=== PATIENT | female | born 1955 | race Caucasian/White ===

== ENCOUNTER 2016-12-15 20:30 | Observation (INO) | payer MEDICARE, OTHER ==
[~2016-12-15] VITALS: Ht 154.9 cm; Wt 78.4 kg
[~2016-12-15 20:30] MED LIST: AMBI10TA PO; ATOR20TA42 PO; CYCL5TAB PO; FLEX10TA PO; PROZ20CA11 PO
[2016-12-15 20:39] VITALS: BP 149/97; PULSE 103; RESP 24; TEMP 97.8; O2SAT 91
[2016-12-15 20:45] VITALS: BP 156/79; PULSE 93; RESP 24; TEMP 97.7; O2SAT 89
[2016-12-15 20:58] VITALS: BP 156/79; PULSE 92; RESP 24; TEMP 97.6; O2SAT 95
[2016-12-15] MEDS ORDERED: SODIUM CHLORIDE 0.9% FLUSH 5 ML FLUSH IVF PRN (21:00)
[2016-12-15] MEDS ORDERED: methylPREDNISolone SOD SUCC 125 MG/2 ML VIAL IVP ONE (21:00)
--- NOTE | 2016-12-15 21:02 | PD ---
HPI Chief Complaint: Respiratory Distress Time Seen by Provider: 20:52 Travel History International Travel<30 days: No Contact w/Intl Traveler<30days: No Traveled to known affect area: No History of Present Illness HPI The patient is a 61-year-old female with a history of asthma who began getting short of breath last 2 days. She does not have a nebulizer machine at home and does not of oxygen at home. She does not take prednisone. She does not have an albuterol puffer. She has a Symbacort inhaler which she uses twice daily. She denies any fever. She does not smoke. PFSH Past Medical History Asthma: Yes Anxiety: Yes Depression: Yes High Cholesterol: Yes Diminished Hearing: No Hypertension: Yes Musculoskeletal: Yes (Chronic back pain, sciatica ) Respiratory: Yes (ASTHMA) Integumentary: Yes (hx eczema, not active ) Menopausal: Yes Past Surgical History Section: Yes Tonsillectomy: Yes Social History Alcohol Use: Yes (2 beers day) Tobacco Use: No Allergies-Medications (Allergen,Severity, Reaction): Coded Allergies: No Known Allergies (Verified , 12/15/16) Reported Meds & Prescriptions Reported Meds & Active Scripts Active Reported Ambien (Zolpidem Tartrate) 10 Mg Tab 10 Mg PO HS PRN Prozac (Fluoxetine HCl) 20 Mg Cap 20 Mg PO DAILY Lipitor (Atorvastatin Calcium) 20 Mg Tab 20 Mg PO HS Symbicort Inh (Budesonide/Formoterol Fumarate) 80-4.5 Mcg/Act Aero 2 Puff INH Q12HR Review of Systems Except as stated in HPI: all other systems reviewed are Neg Physical Exam Narrative GENERAL: The patient is alert, oriented 3 and slight respiratory distress. Her vital signs show oximetry 89-91% on room air, blood pressure 149/97 with a pulse rate of 103 and temperature 97.8. SKIN: Warm and dry. HEAD: Atraumatic. Normocephalic. EYES: Pupils equal and round. No scleral icterus. No injection or drainage. ENT: No nasal bleeding or discharge. Mucous membranes pink and moist. NECK: Trachea midline. No JVD. CARDIOVASCULAR: Regular rate and rhythm. No murmur appreciated. RESPIRATORY: No accessory muscle use. Diminished breath sounds are heard bilaterally with a few diminished wheezes.. Breath sounds equal bilaterally. GASTROINTESTINAL: Abdomen soft, non-tender, nondistended. Hepatic and splenic margins not palpable. MUSCULOSKELETAL: No obvious deformities. No clubbing. No cyanosis. No edema. NEUROLOGICAL: Awake and alert. No obvious cranial nerve deficits. Motor grossly within normal limits. Normal speech. PSYCHIATRIC: Appropriate mood and affect; insight and judgment normal. Data Data Last Documented VS Vital Signs Date Time Temp Pulse Resp B/P Pulse Ox O2 Delivery O2 Flow Rate FiO2 12/15/16 21:35 Nasal Cannula 3.00 12/15/16 21:04 95 26 92 12/15/16 20:58 97.6 156/79 Orders Arterial Blood Gas (Abg) (12/15/16 20:52) Basic Metabolic Panel (Bmp) (12/15/16 20:52) Complete Blood Count With Diff (12/15/16 20:52) Chest, Pa & Lat (12/15/16 20:52) Ecg Monitoring (12/15/16 20:52) Iv Access Insert/Monitor (12/15/16 20:52) Oximetry (12/15/16 20:52) Oxygen Administration (12/15/16 20:52) Methylprednisolone So Succ Inj (Solumedr (12/15/16 21:00) Albuterol-Ipratropium Neb (Duoneb Neb) (12/15/16 21:00) Sodium Chloride 0.9% Flush (Ns Flush) (12/15/16 21:00) Place In Observation (12/15/16 ) Vital Signs (Adult) Q4H (12/15/16 22:54) Activity Oob Ad Sandy (12/15/16 22:54) Cardiovascular Operating Room Nurse / Telemetry .CONTINUOUS (12/15/16 22:54) Diet Heart Healthy (12/16/16 Breakfast) Sodium Chloride 0.9% Flush (Ns Flush) (12/15/16 23:00) Sodium Chloride 0.9% Flush (Ns Flush) (12/16/16 09:00) Resp Oxygen Braeden C Titrat 1-4 L (12/15/16 ) Naloxone Inj (Narcan Inj) (12/15/16 23:00) Albuterol-Ipratropium Neb (Duoneb Neb) (12/16/16 04:00) Albuterol-Ipratropium Neb (Duoneb Neb) (12/15/16 23:00) Methylprednisolone So Succ Inj (Solumedr (12/16/16 00:00) Pantoprazole (Protonix) (12/16/16 09:00) Labs Laboratory Tests Test 12/15/16 21:20 Blood Gas Puncture Site RT RADIAL Blood Gas Patient Temperature 98.6 Blood Gas HCO3 28 mmol/L Blood Gas Base Excess 3.6 mmol/L Blood Gas Oxygen Saturation 86 % Arterial Blood pH 7.43 Arterial Blood Partial 42 mmHG Pressure CO2 Arterial Blood Partial 57 mmHG Pressure O2 Arterial Blood Oxygen Content 18.5 Vol % Arterial Blood 1.8 % Carboxyhemoglobin Arterial Blood Methemoglobin 0.9 % Blood Gas Hemoglobin 15.3 G/DL Blood Gas Inspired Oxygen 21 % MDM Medical Decision Making Medical Screen Exam Complete: Yes Emergency Medical Condition: Yes Medical Record Reviewed: Yes Interpretation(s) The blood gases on room air show pH 7.43, CO2 42, PO2 57 with O2 sat 86%. Carboxyhemoglobin level is 1.8. The chest x-ray shows no acute findings. Remote granulomatous disease is noted. Differential Diagnosis Acute asthma, hypoxemia, bronchitis, pneumonia, COPD with acute exacerbation, pulmonary embolushighly unlikely Narrative Course The patient has acute asthma with hypoxemia. She does not have a nebulizer machine at home and has only the budesonide/formoterol inhaler. She does not smoke. At this time I cannot see anything on her chest x-ray that could account for the hypoxemia. Pulmonary embolus is unlikely, the patient's oxygenation goes up abruptly with nasal cannula oxygen. She also does not have chest pain or tachycardia. Plan: The patient will be admitted to Dr. gAarwal for 23 hour observation. Physician Communication Physician Communication I discussed the patient with Dr. Agarwal, the patient will be 23 hour observation to her. Diagnosis Primary Impression: Acute asthma Additional Impression: Hypoxemia Disposition: 01 DISCHARGE HOME Condition: Stable Peyman Schilling MD Dec 15, 2016 21:02
[2016-12-15] MEDS ORDERED: PROZ20CA11 PO (21:07)
[2016-12-15] MEDS ORDERED: AMBI10TA PO (21:07)
[2016-12-15] MEDS ORDERED: LIPI20TA PO (21:07)
[2016-12-15] MEDS ORDERED: SYMB80AE INH (21:07)
[2016-12-15] MEDS: RESP: ALBUTEROL 2.5 MG/IPRATROPIUM 0.5 MG NEB (SCH) INH ×2 (21:14→21:15)
[2016-12-15 21:31] LABS: BLOOD GAS BASE EXCESS 3.6 mmol/L (-2-2); BLOOD GAS CARBOXYHEMOGLOBIN 1.8 % (0-4); BLOOD GAS HCO3 28 mmol/L (22-26); BLOOD GAS METHEMOGLOBIN 0.9 % (0-2); BLOOD GAS O2 HGB SATURATION 86 % (90-100); BLOOD GAS OXYGEN CONTENT 18.5 Vol % (12.0-20.0); BLOOD GAS PCO2 42 mmHG (38-42); BLOOD GAS PO2 57 mmHG (61-120); BLOOD GAS TOTAL HGB 15.3 G/DL (12.0-16.0); CRITICAL VALUE YES; DRAW SITE RT RADIAL; FIO2 21 %; NUMBER OF ARTERIAL PUNCTURES 1; STAT YES; TEMP CORR TO 98.6; ULNAR PULSE Y
--- NOTE | 2016-12-15 22:52 | RADHPO ---
EXAM DATE/TIME: 12/15/2016 22:06 [facility] COMPARISON: No previous studies available for comparison. INDICATIONS : Short of breath MEDICAL HISTORY : None. SURGICAL HISTORY : None. ENCOUNTER: Initial ACUITY: 1 day PAIN SCORE: 0/10 LOCATION: Bilateral chest FINDINGS: PA and lateral views of the chest demonstrate the lungs to be symmetrically aerated without evidence of mass, infiltrate or effusion. The cardiomediastinal contours are unremarkable. Osseous structure s are intact. CONCLUSION: 1. No acute findings. Remote granulomatous disease. Gareth Pierson MD on December 15, 2016 at 22:49 Board Certified Radiologist. This report was verified electronically.
[2016-12-15] MEDS ORDERED: RESP: ALBUTEROL 2.5 MG/IPRATROPIUM 0.5 MG NEB (PRN) NEB (23:00)
[2016-12-15] MEDS ORDERED: SODIUM CHLORIDE 0.9% FLUSH 5 ML FLUSH FLUSH PRN (23:00)
[2016-12-15] MEDS ORDERED: NALOXONE HCL 0.4 MG/ML AMP IV PRN (23:00)
[2016-12-15 23:11] VITALS: BP 145/69; PULSE 112; RESP 18; O2SAT 92
[2016-12-16] VITALS (10 sets, daily range): BP systolic 119–145; BP diastolic 66–92; PULSE 89–104; RESP 15–20; TEMP 95.9–99; O2SAT 93–97
[2016-12-16] MEDS: methylPREDNISolone SOD SUCC 40 MG/1 ML VIAL IV PUSH SCH ×5 (00:09→22:59)
[2016-12-16] MEDS ORDERED: ZOLPIDEM TARTRATE 5 MG TAB PO ONE (01:00)
[2016-12-16 03:19] LABS: AUTOMATED NEUTROPHIL # 10.9 TH/MM3 (1.8-7.7); BASOPHIL % 0.4 % (0.0-2.0); EOSINOPHIL % 0.2 % (0.0-4.0); HEMATOCRIT 46.8 % (35.0-46.0); HEMO FLAGS DIFF FINAL; LYMPH % 2.8 % (9.0-44.0); LYMPHOCYTE # 0.3 TH/MM3 (1.0-4.8); MEAN CORPUSCULAR HEMOGLOBIN 27.7 PG (27.0-34.0); MEAN CORPUSCULAR HGB CONC 32.6 % (32.0-36.0); MONO % 0.8 % (0.0-8.0); NEUT % 95.8 % (16.0-70.0); PLATELET COUNT 346 TH/MM3 (150-450); RED CELL DISTRIBUTION WIDTH 15.1 % (11.6-17.2); WHITE BLOOD COUNT 11.3 TH/MM3 (4.0-11.0)
[2016-12-16 03:33] LABS: POTASSIUM 3.5 MEQ/L (3.5-5.1)
[2016-12-16 03:36] LABS: BICARBONATE 28.6 MEQ/L (21.0-32.0)
[2016-12-16] MEDS ORDERED: RESP: ALBUTEROL 2.5 MG/IPRATROPIUM 0.5 MG NEB (SCH) NEB (04:00)
[2016-12-16] MEDS: RESP: ALBUTEROL 2.5 MG/IPRATROPIUM 0.5 MG NEB (SCH) NEB ×3 (08:00→20:02)
[2016-12-16] MEDS: SODIUM CHLORIDE 0.9% FLUSH 5 ML FLUSH FLUSH SCH ×2 (09:03→21:00)
[2016-12-16] MEDS: PANTOPRAZOLE SOD 40 MG DELAYED RELEASE TAB PO SCH (09:03)
--- NOTE | 2016-12-16 15:43 | HHI.HP ---
cc: Amarilis Nash MD [facility] Primary [facility] Physician Amarilis Nash MD Admission Diagnosis acute asthma with hypoxemia Diagnoses: Chief Complaint: Short of breath Travel History International Travel<30 Days: No Contact w/Intl Traveler <30 Da: No Traveled to Known Affected Are: No History of Present Illness Patient is a 61-year-old female with a long-standing controlled asthma history. Patient did have increased dyspnea on exertion with associated dry cough for about 2 days. She did come to the emergency room was hypoxemic on room air at 89%. Patient was recommended for observation in the hospital due to increasing dyspnea, work of breathing and hypoxemia. She has done better with bronchodilators and steroids. Patient has an inhaler at home which she used as well as some Coricidin and nasal sprays which were not effective. Review of Systems Constitutional: DENIES: Diaphoretic episodes, Fatigue, Fever, Weight gain, Weight loss, Chills, Dizziness, Change in appetite, Night Sweats Endocrine: DENIES: Abnorml menstrual pattern, Heat/cold intolerance, Polydipsia , Polyuria, Polyphagia Eyes: DENIES: Blurred vision, Diplopia, Eye inflammation, Eye pain, Vision loss , Photosensitivity, Double Vision Ears, nose, mouth, throat: DENIES: Tinnitus, Hearing loss, Vertigo, Nasal discharge, Oral lesions, Throat pain, Hoarseness, Ear Pain, Running Nose, Epistaxis, Sinus Pain, Toothache, Odynophagia Respiratory: COMPLAINS OF: Cough, Shortness of breath, DENIES: Apneas, Snoring , Wheezing, Hemoptysis, Sputum production Cardiovascular: DENIES: Chest pain, Palpitations, Syncope, Dyspnea on Exertion , PND, Lower Extremity Edema, Orthopnea, Claudication Gastrointestinal: DENIES: Abdominal pain, Black stools, Bloody stools, Constipation, Diarrhea, Nausea, Vomiting, Difficulty Swallowing, Anorexia Genitourinary: DENIES: Abnormal vaginal bleeding, Dysmenorrhea, Dyspareunia, Sexual dysfunction, Urinary frequency, Urinary incontinence, Urgency, Hematuria , Dysuria, Nocturia, Vaginal discharge Musculoskeletal: DENIES: Joint pain, Muscle aches, Stiffness, Joint Swelling, Back pain, Neck pain Integumentary: DENIES: Abnormal pigmentation, Pruritus, Rash, Nail changes, Breast masses, Breast skin changes, Nipple discharge Hematologic/lymphatic: DENIES: Bruising, Lymphadenopathy Immunologic/allergic: DENIES: Eczema, Urticaria Neurologic: DENIES: Abnormal gait, Headache, Localized weakness, Paresthesias, Seizures, Speech Problems, Tremor, Poor Balance Psychiatric: DENIES: Anxiety, Confusion, Mood changes, Depression, Hallucinations, Agitation, Suicidal Ideation, Homicidal Ideation, Delusions Past Family Social History Past Medical History Asthma, controlled 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 Past Surgical History Urinary stent replacement monthly Reported Medications Reviewed in the medical record Allergies: Coded Allergies: No Known Allergies (Verified , 12/15/16) Active Ordered Medications Reviewed in the medical record Family History No family history of asthma Social History No tobacco or alcohol dependency, unemployed, lives with her , no sick contacts Physical Exam Vital Signs Vital Signs Date Time Temp Pulse Resp B/P Pulse Ox O2 Delivery O2 Flow Rate FiO2 12/16/16 12:26 97.7 94 15 129/85 95 12/16/16 08:10 99.0 104 16 119/82 94 12/16/16 08:02 93 Nasal Cannula 2.00 12/16/16 07:00 Nasal Cannula 2.00 12/16/16 04:19 103 12/16/16 04:04 22 95 12/16/16 04:00 95.9 103 18 145/81 96 12/16/16 04:00 Nasal Cannula 2.00 12/16/16 02:53 93 20 97 Nasal Cannula 2 12/16/16 02:53 93 20 137/66 97 Nasal Cannula 2 12/16/16 01:48 18 96 Nasal Cannula 2 12/16/16 01:48 92 18 140/88 96 Nasal Cannula 2 12/15/16 23:11 18 92 Nasal Cannula 2 12/15/16 23:11 112 18 145/69 92 Room Air 2 12/15/16 23:11 92 2 12/15/16 21:35 Nasal Cannula 3.00 12/15/16 21:04 95 26 92 Nasal Cannula 2 12/15/16 20:58 97.6 92 24 156/79 95 Nasal Cannula 2 12/15/16 20:45 97.7 93 24 156/79 89 12/15/16 20:39 97.8 103 24 149/97 91 Room Air Physical Exam GENERAL: This is a well-nourished, well-developed patient, in no apparent distress. SKIN: No rashes, ecchymoses or lesions. Cool and dry. HEAD: Atraumatic. Normocephalic. No temporal or scalp tenderness. EYES: Pupils equal round and reactive. Extraocular motions intact. No scleral icterus. No injection or drainage. ENT: Nose without bleeding, purulent drainage or septal hematoma. Throat without erythema, tonsillar hypertrophy or exudate. Uvula midline. Airway patent. NECK: Trachea midline. No JVD or lymphadenopathy. Supple, nontender, no meningeal signs. CARDIOVASCULAR: Regular rate and rhythm without murmurs, gallops, or rubs. RESPIRATORY: Decreased air flow bilaterally GASTROINTESTINAL: Abdomen soft, non-tender, nondistended. No hepato-splenomegaly , or palpable masses. No guarding. MUSCULOSKELETAL: Extremities without clubbing, cyanosis, or edema. No joint tenderness, effusion, or edema noted. No calf tenderness. Negative Homans sign bilaterally. NEUROLOGICAL: Awake and alert. Cranial nerves II through XII intact. Motor and sensory grossly within normal limits. Five out of 5 muscle strength in all muscle groups. Normal speech. Laboratory Laboratory Tests Test 12/15/16 12/16/16 21:20 03:13 Blood Gas Puncture Site RT RADIAL Blood Gas Patient Temperature 98.6 Blood Gas HCO3 28 Blood Gas Base Excess 3.6 Blood Gas Oxygen Saturation 86 Arterial Blood pH 7.43 Arterial Blood Partial 42 Pressure CO2 Arterial Blood Partial 57 Pressure O2 Arterial Blood Oxygen Content 18.5 Arterial Blood 1.8 Carboxyhemoglobin Arterial Blood Methemoglobin 0.9 Blood Gas Hemoglobin 15.3 Blood Gas Inspired Oxygen 21 White Blood Count 11.3 Red Blood Count 5.50 Hemoglobin 15.2 Hematocrit 46.8 Mean Corpuscular Volume 85.0 Mean Corpuscular Hemoglobin 27.7 Mean Corpuscular Hemoglobin 32.6 Concent Red Cell Distribution Width 15.1 Platelet Count 346 Mean Platelet Volume 7.4 Neutrophils (%) (Auto) 95.8 Lymphocytes (%) (Auto) 2.8 Monocytes (%) (Auto) 0.8 Eosinophils (%) (Auto) 0.2 Basophils (%) (Auto) 0.4 Neutrophils # (Auto) 10.9 Lymphocytes # (Auto) 0.3 Monocytes # (Auto) 0.1 Eosinophils # (Auto) 0.0 Basophils # (Auto) 0.0 CBC Comment DIFF FINAL Differential Comment Sodium Level 136 Potassium Level 3.5 Chloride Level 98 Carbon Dioxide Level 28.6 Anion Gap 9 Blood Urea Nitrogen 7 Creatinine 0.90 Estimat Glomerular Filtration 64 Rate Random Glucose 195 Calcium Level 9.1 Result Diagram: 12/16/1631212/16/16312 Imaging Last Impressions Chest X-Ray 12/15/162051 Signed Impressions: Service Date/Time: Thursday, December 15, 2016 22:06 - CONCLUSION: 1. No acute findings. Remote granulomatous disease. Gareth Pierson MD Assessment and Plan Problem List: (1) Acute asthma ICD Code: J45.909 Status: Acute Plan: Patient will continue with bronchodilators and steroids, continue with oxygen as needed and follow Christine Murray MD Dec 16, 2016 15:43
[2016-12-16] MEDS ORDERED: ZOLPIDEM TARTRATE 5 MG TAB PO PRN (22:15)
[2016-12-17] MEDS: methylPREDNISolone SOD SUCC 40 MG/1 ML VIAL IV PUSH SCH (06:06)
[2016-12-17 07:47] VITALS: O2SAT 95
[2016-12-17] MEDS: RESP: ALBUTEROL 2.5 MG/IPRATROPIUM 0.5 MG NEB (SCH) NEB ×2 (07:47→13:49)
[2016-12-17 08:52] VITALS: BP 138/88; PULSE 96; RESP 15; TEMP 97.8; O2SAT 95
[2016-12-17] MEDS: PANTOPRAZOLE SOD 40 MG DELAYED RELEASE TAB PO SCH (09:29)
[2016-12-17] MEDS: SODIUM CHLORIDE 0.9% FLUSH 5 ML FLUSH FLUSH SCH (09:30)
[2016-12-17] MEDS ORDERED: PNEUMOCOCCAL POLYVALENT INJ 25 MCG/0.5 ML SYR IM ONE (10:00)
[2016-12-17 12:11] VITALS: BP 138/78; PULSE 94; RESP 16; TEMP 96.1; O2SAT 94
[2016-12-17] MEDS ORDERED: ALBU0.08 NEB (13:30)
[2016-12-17] MEDS ORDERED: VENTAER INH (13:31)
[2016-12-17] MEDS ORDERED: NEBULIZER1 MI1 (13:31)
[2016-12-17] MEDS ORDERED: MEDR4PAK PO (13:31)
--- NOTE | 2016-12-17 13:35 | HHI.PR ---
Subjective Remarks Patient no longer feels short of breath. She states that she is still having mucus in her throat. Objective Vitals Vital Signs Date Time Temp Pulse Resp B/P Pulse Ox O2 Delivery O2 Flow Rate FiO2 12/17/16 12:11 96.1 94 16 138/78 94 12/17/16 11:45 Room Air 2.00 21 12/17/16 08:52 97.8 96 15 138/88 95 12/17/16 07:47 95 21 12/16/16 20:05 93 21 12/16/16 20:00 98.1 89 20 140/92 93 12/16/16 20:00 93 Room Air 12/16/16 17:37 98.1 95 15 122/86 94 I/O 12/16/16 12/16/16 12/16/16 12/17/16 12/17/16 12/17/16 07:00 15:00 23:00 07:00 15:00 23:00 Intake Total 0 ml 1280 ml 60 ml Balance 0 ml 1280 ml 60 ml Intake Oral 0 ml 1280 ml 60 ml # Voids 4 1 # Bowel Movements 0 0 0 Result Diagram: 12/16/1631212/16/163 Objective Remarks GENERAL: Well-nourished, well-developed patient. SKIN: Warm and dry. HEAD: Normocephalic. EYES: No scleral icterus. No injection or drainage. NECK: Supple, trachea midline. No JVD or lymphadenopathy. CARDIOVASCULAR: Regular rate and rhythm without murmurs, gallops, or rubs. RESPIRATORY: Breath sounds equal bilaterally. No accessory muscle use. On room air. GASTROINTESTINAL: Abdomen soft, non-tender, nondistended. EXTREMITIES: No cyanosis, or edema. NEUROLOGICAL: Awake, alert, and oriented x 3. Non-focal. A/P Problem List: (1) Acute asthma ICD Code: J45.909 Status: Acute Assessment and Plan -Asthma exacerbation. She had very mild hypoxia yesterday. His been stable on room air overnight. No wheezing on exam today. Patient would like to go home. We will check a walk test and if that is okay we will let her go with a Medrol Dosepak, inhalers and nebulizer. I did ask that she follow-up with her primary care physician within one week. Also informed her of signs and symptoms of asthma or rebound and instructed her to return to the ER should she develop those specifically the shortness of breath or chest tightness. Martha Strickland MD Dec 17, 2016 13:35
== END 2016-12-17 14:33 | disposition home or self-care (01) ==
LOC: PHED 20:30 → PHEDA 23:11 → PH3A 12-16 04:03
PROVIDERS: ADMIT Family Medicine; ATTEND Family Medicine
DX: J45.901 Unspecified asthma with (acute) exacerbation (principal); R09.02 Hypoxemia; D71 Functional disorders of polymorphonuclear neutrophils; M54.9 Dorsalgia, unspecified; M54.30 Sciatica, unspecified side; G89.29 Other chronic pain; I10 Essential (primary) hypertension; R05 Cough; Z99.81 Dependence on supplemental oxygen; Z23 Encounter for immunization
CPT/HCPCS: 36600; 71020; 80048; 82805; 85025; 90732; 94620; 94640; 94664; 96374; 99285; G0009; G0378; J2920; J2930; 90471